=== PATIENT | male | born 1965 | race African-American/Black ===

== ENCOUNTER 2018-02-19 08:24 | Emergency (ER) | payer BC ==
--- NOTE | 2018-02-19 09:36 | ER ---
Nurse's Notes [facility] Name: Tim Jaramillo Age: 52 yrs Sex: Male : 1965 Arrival Date: 02/19/2018 Time: 08:28 Bed 14 Private MD: None, None Diagnosis: Acute serous otitis media Presentation: 02/19 08:39 Presenting complaint: Patient states: I have been having right ear pain, sore throat tw2 and a runny nose for like a week, my ear is killing me and my left one sometimes, i have tried OTC meds, no help. Transition of care: patient was not received from another setting of care. Onset of symptoms was February 19, 2018. Risk Assessment: Do you want to hurt yourself or someone else? Patient reports no desire to harm self or others. Initial Sepsis Screen: Does the patient meet any 2 criteria? No. Patient's initial sepsis screen is negative. Does the patient have a suspected source of infection? No. Patient's initial sepsis screen is negative. Care prior to arrival: None. 08:39 Method Of Arrival: Ambulatory tw2 08:39 Acuity: [place] 4 tw2 Historical: - Allergies: 08:45 No Known Allergies; tw2 - Home Meds: 08:45 None [Active]; tw2 - PMHx: 08:45 None; tw2 - PSHx: 08:45 Knee surgery; tw2 - Immunization history:: Adult Immunizations up to date. - Social history:: Smoking status: Patient/guardian denies using tobacco. - Ebola Screening: : Patient denies travel to an Ebola-affected area in the 21 days before illness onset. Screenin:48 Abuse screen: Denies threats or abuse. Nutritional screening: No deficits noted. tw2 Tuberculosis screening: No symptoms or risk factors identified. Fall Risk None identified. Assessment: 08:46 General: Appears in no apparent distress. well groomed, Behavior is calm, cooperative, tw2 appropriate for age. Pain: Complains of pain in right ear and throat. Neuro: Level of Consciousness is awake, alert, obeys commands, Oriented to person, place, time, situation. Cardiovascular: Denies chest pain, shortness of breath, Heart tones S1 S3 Capillary refill < 3 seconds Patient's skin is warm and dry. Respiratory: Airway is patent Respiratory effort is even, unlabored, Respiratory pattern is regular, symmetrical, Breath sounds are clear bilaterally. GI: No signs and/or symptoms were reported involving the gastrointestinal system. : No signs and/or symptoms were reported regarding the genitourinary system. EENT: Throat is pink Reports nasal congestion pain in right ear and left ear. Derm: No signs and/or symptoms reported regarding the dermatologic system. Musculoskeletal: Range of motion: intact in all extremities. 10:02 Reassessment: Patient appears in no apparent distress at this time. No changes from tw2 previously documented assessment. Patient and/or family updated on plan of care and expected duration. Pain level reassessed. Patient is alert, oriented x 3, equal unlabored respirations, skin warm/dry/pink. Vital Signs: 08:40 BP 178 / 118; Pulse 83; Resp 18; Temp 98.5(O); Pulse Ox 98% on R/A; Weight 111.13 kg tw2 (R); Height 6 ft. 0 in. (182.88 cm); Pain 8/10; 09:41 BP 158 / 106; Pulse 80; Resp 17; Pulse Ox 99% on R/A; tw2 08:40 Body Mass Index 33.23 (111.13 kg, 182.88 cm) tw2 ED Course: 08:28 Patient arrived in ED. mr 08:28 None, None is Private Physician. mr 08:28 Bed in low position. Call light in reach. Pulse ox on. NIBP on. tw2 08:32 Uli Rosas PA is PHCP. [facility] 08:32 Daquan Brush MD is Attending Physician. [facility] 08:39 Maribel Phelps, ROB is Primary Nurse. tw2 08:40 Triage completed. tw2 08:40 Arm band placed on. tw2 08:48 No provider procedures requiring assistance completed. Patient did not have IV access tw2 during this emergency room visit. 08:53 Strep Sent. [facility] 08:53 Strep swab sent to lab. [facility] Administered Medications: 09:45 Drug: Dexamethasone 10 mg Route: IM; Site: left deltoid; tw2 10:01 Follow up: Response: No adverse reaction tw2 Outcome: 09:35 Discharge ordered by . yeimi 10:01 Discharged to home ambulatory. tw2 10:01 Condition: good 10:01 Discharge instructions given to patient, Instructed on discharge instructions, follow up and referral plans. medication usage, Demonstrated understanding of instructions, follow-up care, medications, Prescriptions given X 1. 10:02 Patient left the ED. tw2 Signatures: Uli Rosas PA PA jmm Rivera, Maria mr Wise, Tara, RN RN tw2 Mojgan Ferguson [facility]
--- NOTE | 2018-02-19 09:36 | EDPHYS ---
Physician Documentation [facility] Name: Tim Jaramillo Age: 52 yrs Sex: Male : 1965 Arrival Date: 02/19/2018 Time: 08:28 Bed 14 Private MD: None, None ED Physician Daquan Brush HPI: 02/19 08:45 This 52 yrs old Black Male presents to ER via Ambulatory with complaints of Sore jmm Throat, Ear Pain. 08:45 The patient presents with sore throat. jmm 08:45 The patient describes throat pain as burning. Onset: The symptoms/episode jmm began/occurred gradually, 1 week(s) ago. 08:45 This is a 52 year old male with a history of htn that presents to the ED with right ear jmm pain and throat pain for 1 week. Patient denies fever, denies difficulty eating or drinking. . 08:45 Modifying factors: The symptoms are alleviated by nothing, the symptoms are aggravated jmm by nothing, Patient's oral intake status: good. Associated signs and symptoms: Pertinent negatives fever. The patient has experienced a previous episode. Historical: - Allergies: 08:45 No Known Allergies; tw2 - Home Meds: 08:45 None [Active]; tw2 - PMHx: 08:45 None; tw2 - PSHx: 08:45 Knee surgery; tw2 - Immunization history:: Adult Immunizations up to date. - Social history:: Smoking status: Patient/guardian denies using tobacco. - Ebola Screening: : Patient denies travel to an Ebola-affected area in the 21 days before illness onset. ROS: 08:45 Respiratory: Negative for shortness of breath, cough, wheezing, and pleuritic chest jmm pain. 08:45 Constitutional: Negative for fever. 08:45 ENT: Positive for sore throat. 08:45 ENT: Positive for ear pain. 08:45 Cardiovascular: Negative for chest pain. 08:45 Respiratory: Negative for shortness of breath. 08:45 All other systems are negative. Exam: 08:45 Head/Face: atraumatic. jmm 08:45 Constitutional: The patient appears in no acute distress, alert, awake. 08:45 Eyes: Extraocular movements: intact throughout. 08:45 ENT: TM's: erythema, that is moderate, on the right, pharyngeal erythema noted, no uvular shift, no peritonsillar mass appreciated. 08:45 Neck: ROM/movement: is normal, Lymph nodes: lymphadenopathy is appreciated, anterior cervical nodes. 08:45 Cardiovascular: Rate: normal, Rhythm: regular, Pulses: no pulse deficits are appreciated. 08:45 Respiratory: the patient does not display signs of respiratory distress, Respirations: normal, Breath sounds: are clear throughout. 08:45 Musculoskeletal/extremity: ROM: intact in all extremities. 08:45 Skin: Appearance: Color: normal in color. 08:45 Neuro: Orientation: is normal, Mentation: is normal, Memory: is normal. 08:45 Psych: Behavior/mood is pleasant, cooperative. Vital Signs: 08:40 BP 178 / 118; Pulse 83; Resp 18; Temp 98.5(O); Pulse Ox 98% on R/A; Weight 111.13 kg tw2 (R); Height 6 ft. 0 in. (182.88 cm); Pain 8/10; 09:41 BP 158 / 106; Pulse 80; Resp 17; Pulse Ox 99% on R/A; tw2 08:40 Body Mass Index 33.23 (111.13 kg, 182.88 cm) tw2 MDM: 08:46 Patient medically screened. [facility] 09:27 Data reviewed: vital signs, nurses notes, lab test result(s). Counseling: I had a [facility] detailed discussion with the patient and/or guardian regarding: the historical points, exam findings, and any diagnostic results supporting the discharge/admit diagnosis, the need for outpatient follow up, to return to the emergency department if symptoms worsen or persist or if there are any questions or concerns that arise at home. 02/19 08:46 Order name: Strep; Complete Time: 09:17 [facility] 02/19 09:06 Order name: Throat Culture EDMS Administered Medications: 09:45 Drug: Dexamethasone 10 mg Route: IM; Site: left deltoid; tw2 10:01 Follow up: Response: No adverse reaction tw2 Disposition: 17:03 Co-signature as Attending Physician, Daquan Brush MD Available for consultation at ps1 all times. . Disposition: 02/19/18 09:35 Discharged to Home. Impression: Acute serous otitis media. - Condition is Stable. - Discharge Instructions: Otitis Media, Adult, Pharyngitis. - Prescriptions for Augmentin 875- 125 mg Oral Tablet - take 1 tablet by ORAL route every 12 hours for 10 days; 20 tablet. - Medication Reconciliation Form, Thank You Letter, Antibiotic Education, Prescription Opioid Use, Work release form form. - Follow up: Private Physician; When: 2 - 3 days; Reason: Continuance of care. Signatures: Dispatcher [employer] EDMS Uli Rosas PA PA jmm Wise, Tara, RN RN tw2 Daquan Brush MD MD ps1 Corrections: (The following items were deleted from the chart) 09:32 09:15 The patient presents with sore throat, [facility] :32 09:15 This 52 yrs old Black Male presents to ER via Ambulatory with complaints of Sore jmm Throat, Ear Pain. yeimi 10:02 09:35 02/19/2018 09:35 Discharged to Home. Impression: Acute serous otitis media. tw2 Condition is Stable. Forms are Work release form, Medication Reconciliation Form, Thank You Letter, Antibiotic Education, Prescription Opioid Use. Follow up: Private Physician; When: 2 - 3 days; Reason: Continuance of care. yeimi
[2018-02-19] MEDS ORDERED: DEXAMETHASONE 10 MG/ML VIAL ONE (09:48)
== END 2018-02-19 10:02 | disposition home or self-care (01) ==
LOC: ER 08:24
DX: H65.00 Acute serous otitis media, unspecified ear (principal)
CPT/HCPCS: 87070; 87081; 96372; 99284; J1100